=== PATIENT | female | born 1965 | race Caucasian/White ===

== ENCOUNTER 2023-02-22 12:21 | Outpatient (REF) | payer BC, SELFPAY | END 2023-02-22 12:22 | disposition home or self-care (01) | LOC: HO.HOSX 12:21 | PROVIDERS: Visit Provider Orthopaedic Surgery | DX: Z13.89 Encounter for screening for other disorder (principal) ==

== ENCOUNTER 2023-02-22 12:51 | Outpatient (AMB) | payer BC, SELFPAY ==
--- NOTE | 2023-02-22 12:51 | MHC.OFFVIS ---
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 Patient reports that has had ongoing lateral and posterior knee pain for about 5 weeks now. She denies any injury. Her pain is radiating down the leg and to the ankle. She has tingling of the leg and swelling of the ankle. She has an occasional shooting pain with certain misteps of the foot. She was seen at urgent care who gave her a cortisone injection on wednesday of last week, this injection was not helpful. 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 She complains of pain in her knee with daily activity, which she say radiates down her leg into her ankle. She says this shooting pain mostly occurs if she mis-steps or twisting motions. She complains of numbness in her leg for ~4 weeks, and says her ankle swells with use. She was seen at Urgent Care on 02/15/23, and was given a knee injection, which she says did not help more than ~2 hours. 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 She found no relief from NSAIDs or PO steroids that her PCP prescribed. She denies any prior injury to her knee. She says she fell down 2 flights of stairs in 2019 and broke her ankle. She had surgery for her ankle at [facility]. 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 Review of Systems Const All systems reviewed & are unremarkable except as noted in HPI and below Physical Exam Vital Signs: BMI result Body Mass Index 26.3 Const General: no acute distress, alert and awake Orientation/consciousness: patient oriented x3 HEENT Head: Yes normocephalic and Yes atraumatic Eyes EOM: EOMs intact bilaterally Resp Effort & Inspection: normal respiratory effort and able to speak in complete sentences Cardio Jugular venous distension: no JVD Skin General skin exam: turgor normal Rashes: no rashes Neuro General: patient oriented x3 Extrem Other: Right Knee: + Lateral Veronica's Mild effusion Psych Appearance: grossly normal Affect: normal affect Attitude: cooperative Results Reviewed Results Reviewed: I personally reviewed relevant radiographs. Mild right knee OA, moderate left knee OA Assessment & Plan Assessment & Plan (1) Internal derangement of right knee: Code(s): M23.91 - Unspecified internal derangement of right knee Plan: This is a 57 year old woman with right knee internal derangement with mild effusion. She has sharp pain with weight-bearing and twisting activities, and a prior injection on 02/15/23 gave her only several hours of relief. She stays active working as a fleet driver and is ambulating, getting into and out of the delivery vehicle and driving constantly. I ordered an MRI of her knee, she will follow up when completed for review. I recommend RICE and she consider time off of work if possible. Plan Scribed for Warren Grant MD by Javier Rodgers, medical education coordinator, on 02/22/23 at 1:20 PM, EST. Orders: Orders XR knee RT 2V Today M25.569 - Pain in unspecified knee XR knee standing BI Today M25.569 - Pain in unspecified knee MR knee RT wo con Today M23.91 - Unspecified internal derangement of right knee Coding Level of Care Code New Pt Level 3 (70758) Diagnoses Internal derangement of right knee M23.91
[2023-02-22 13:07] VITALS: BMI 26.3
== END 2023-02-22 13:54 | disposition home or self-care (01) ==
PROVIDERS: PCP Physician Assistant Medical; Visit Provider Orthopaedic Surgery
DX: M23.91 Unspecified internal derangement of right knee (principal); M25.461 Effusion, right knee
CPT/HCPCS: 99204

== ENCOUNTER 2025-03-16 20:48 | Emergency (ER) | payer BC, SELFPAY ==
[2025-03-16 20:51] VITALS: BP 133/62; PULSE 89; RESP 20; TEMP 36.5; O2SAT 99; BMI 25.8
--- NOTE | 2025-03-16 20:52 | ED.GENADULT ---
HPI - General Adult General Chief complaint: Extremity Injury, Upper Stated complaint: Hand laceration Time Seen by Provider: 03/16/25 20:57 History of Present Illness ED Provider: Tamra OTERO narrative: The patient comes to the emergency room after accidentally cutting herself with a kitchen knife while preparing an apple. The wound is on the webspace of the left hand. She has no numbness or tingling or loss of function of the thumb or index finger. She last had a tetanus shot 6 months ago at her primary care doctor's office. There was no other injury. No other complaints. Related Data Home Medications ?Medication ?Instructions ?Recorded ?Confirmed sertraline 50 mg tablet 50 mg PO DAILY 02/22/23 tizanidine 2 mg capsule 2 mg PO Q8H PRN 02/22/23 Allergies Allergy/AdvReac Type Severity Reaction Status Date / Time hydrocodone (HYDROCODONE) Allergy Unknown HIVES Verified 03/16/25 20:55 hydrocodone Allergy Unknown Hives Uncoded 02/22/23 12:59 Review of Systems Review of Systems: Yes all other systems are reviewed and are negative [facility]LY [facility] Past Medical History Surgical History (Updated 02/22/23 @ 13:08 by Alicja Kaminski CMA) History of ankle surgery (~2019) History of appendectomy (~2012) Social History Social History (Updated 02/22/23 @ 13:08 by Alicja Kaminski CMA) Unable to assess alcohol history related to: Unknown Alcohol intake: unknown Patient Tobacco Use Status: Never used Tobacco Smoked in Last 30 Days: No Any prior treatment program specific to substance use: No Advance Directives: No Advance Directives Information Provided: No Do you have a plan to hurt others: No Plan Current occupational status: employed 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 She looks as if she is generally in good health. HENMT Other: The face is symmetrical. ?Mucous membranes moist. Eyes General: appearance normal, both eyes and all related structures Resp Effort & Inspection: normal respiratory effort Skin Other: There is a 3 cm laceration to the dorsum of the left hand on the webspace between the thumb and index finger. The wound is linear with straight inches. Neuro Other: The patient is awake and alert with a normal mental status. Grossly intact motor and sensory function in the fingers of the left hand. Extrem Other: There is a laceration to the skin of the dorsum of the webspace of the left hand between the thumb and index finger. The laceration is about 3 cm long. It is a full-thickness laceration exposing the subcutaneous fat but does not seem to go significantly deeper. There did not seem to be any deeper structures involved in the wound. Normal function of the thumb and index finger. Course Course Course Narrative: RME, this is a rapid medical exam performed by Manuel Barber please refer to primary provider for complete H&P- 59-year-old female presents for evaluation of a laceration in between her left 1st and 2nd web spacing. This is an A laceration while using a knife to cut an apple. Tetanus is up-to-date Procedures Laceration Laceration 1: Site: hand (Dorsum of the webspace between left thumb and index finger) Side (If applicable): left Size (cm): 3 Description: linear Depth: simple, single layer Local Anesthetic: lidocaine 1% Amount of anesthesia used (mL): 3 Pre-repair: wound explored, irrigated extensively and deep structures intact Skin layer closed with: nylon Size (cm): 4-0 Number of sutures: 4 Medical Decision Making Medical Decision Making MDM Narrative: The patient is a generally healthy 59-year-old who was up-to-date on tetanus who has an accidental laceration to her left hand. This is a full-thickness laceration but is not associated with any neurovascular injury or tendon injury. The wound was cleaned and closed using normal wound closure techniques. Four 4-0 nylon stitches were used. Wound care instructions were reviewed with the patient. Stitches out in 8-10 days. The patient was given a work note. 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 Discharge Plan Discharge Clinical Impression: Laceration of left hand Patient Disposition: Home, Self-Care Instructions: Laceration (ED) Additional Instructions: Keep wound clean and dry. Apply bacitracin 2 times a day and with Band-Aid changes for the first 48 hours. After 48 hours you may simply keep the wound covered with a Band-Aid. The wound may get wet in the shower after 24 hours. You may gently cleaned the wound. Do not scrub the wound. Stitches should be removed in 8-10 days at your primary care doctor's office. Return to the emergency room if you have any concerns about infection or other complication of the wound. Prescriptions: No Action sertraline 50 mg tablet 50 mg PO DAILY tizanidine 2 mg capsule 2 mg PO Q8H PRN Referrals: Norma Murphy MD [Primary Care Provider, Medical] Stand Alone Forms: Work/School Release Print Language: Georgian
[2025-03-16] MEDS: Lidocaine HCl 1 % MPF 5 ML VIAL INFILTRATI (21:23)
--- OUTSIDE RECORDS SUMMARY | 2025-03-16 21:25 | XMS_ITS ---
Author Name [facility] Organization Unknown History of Medication Use Medication Directions Dispensed Refills Start Date End Date Stat Kenalog 40 mg/mL ela pension for injection active sertraline active Encounters Encounter Type Encounter Reason Primary Diagnosis Location Date Ambulatory [facility] [place] 03/11/2023 Ambulatory [facility] [place] 02/15/2023 Ambulatory [facility] [place] 02/15/2023 Ambulatory [facility] [place] 02/15/2023 Ambulatory [facility] [place] 02/15/2023
[2025-03-16 21:53] VITALS: BP 133/62; PULSE 89; RESP 20; TEMP 36.5; O2SAT 99
== END 2025-03-16 21:56 | disposition home or self-care (01) ==
PROVIDERS: Emergency Provider Emergency Medicine; PCP Internal Medicine
DX: S61.412A Laceration without foreign body of left hand, initial encounter (principal); W26.0XXA Contact with knife, initial encounter; Y93.G3 Activity, cooking and baking; Y92.9 Unspecified place or not applicable; Y99.9 Unspecified external cause status
CPT/HCPCS: 12002; 99284; J2003